=== PATIENT | male | born 1935 | race Caucasian/White ===

== ENCOUNTER 2018-03-08 14:34 | Emergency (ER) | payer OTHER ==
[~2018-03-08] VITALS: Ht 188 cm; Wt 95.9 kg
[2018-03-08 14:45] VITALS: BP 172/74; PULSE 59; RESP 16; TEMP 98.2; O2SAT 94
--- NOTE | 2018-03-08 15:18 | PD ---
HPI Chief Complaint: Edema Time Seen by Provider: 15:01 Travel History International Travel<30 days: No Contact w/Intl Traveler<30days: No Traveled to known affect area: No History of Present Illness HPI This patient was sent in to make sure he did not have a right leg DVT. He has had right leg swelling from knee to foot for the last week. No injury. He has some minor discomfort but no major pains there. No fever. 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 Symptom severity is mild to moderate. No alleviating factors. He is breathing fine. No exacerbating factors. PFSH Past Medical History Cardiovascular Problems: Yes (htn on med, [place] x 2, AAA with mesh) Cerebrovascular Accident: Yes (tia) Respiratory: Yes (copd) Social History Alcohol Use: No Tobacco Use: No Substance Use: No Allergies-Medications (Allergen,Severity, Reaction): Coded Allergies: No Known Allergies (Unverified , 03/08/18) Reported Meds & Prescriptions Reported Meds & Active Scripts Active Reported Klor-Con 10 (Potassium Chloride) 10 Meq Tab 10 Meq PO DAILY Furosemide 20 Mg Tab 20 Mg PO DAILY Alprazolam 0.25 Mg Tab 0.25 Mg PO BID PRN Zantac (Ranitidine HCl) 150 Mg Tab 150 Mg PO BID Isosorbide Mononitrate 10 Mg Tab 10 Mg PO DAILY Take 2 doses 7 hours apart. Simvastatin 40 Mg Tab 40 Mg PO HS Metoprolol Tartrate 25 Mg Tab 25 Mg PO BID Primidone 50 Mg Tab 50 Mg PO DAILY Benztropine (Benztropine Mesylate) 0.5 Mg Tab 0.5 Mg PO HS Review of Systems General / Constitutional: No: Fever Eyes: No: Visual changes HENT: No: Headaches Cardiovascular: Positive: Edema, No: Chest Pain or Discomfort Respiratory: No: Shortness of Breath Gastrointestinal: No: Abdominal Pain Genitourinary: No: Dysuria Musculoskeletal: Positive: Edema, Pain Skin: No Rash Neurologic: No: Weakness Psychiatric: No: Depression Endocrine: No: Polydipsia Hematologic/Lymphatic: No: Easy Bruising Physical Exam Narrative GENERAL: Pleasant elderly well-developed patient in no apparent distress. SKIN: Focused skin assessment reveals no rash and nodules. Skin is Warm and dry. HEAD: Atraumatic. Normocephalic. EYES: Pupils equal and round. No scleral icterus. No injection or drainage. Poor vision ENT: No nasal bleeding or discharge. Mucous membranes pink and moist. NECK: Trachea midline. No JVD. CARDIOVASCULAR: Regular rate and rhythm. No murmur appreciated. RESPIRATORY: No accessory muscle use. Clear to auscultation. Breath sounds equal bilaterally. GASTROINTESTINAL: Abdomen soft, non-tender, nondistended. Hepatic and splenic margins not palpable. MUSCULOSKELETAL: No obvious deformities. No clubbing. No cyanosis. Right leg has some swelling to the lower leg ankle and foot. No specific tenderness. It is not red and warm. NEUROLOGICAL: Awake and alert. No obvious cranial nerve deficits. Motor grossly within normal limits. Normal speech. PSYCHIATRIC: Appropriate mood and affect; insight and judgment normal. Data Data Last Documented VS Vital Signs Date Time Temp Pulse Resp B/P (MAP) Pulse Ox O2 Delivery O2 Flow Rate FiO2 03/08/18 15:08 Room Air 03/08/18 14:45 98.2 59 16 172/74 (106) 94 Orders Orders Iv Access Insert/Monitor (03/08/18 15:10) Complete Blood Count With Diff (03/08/18 15:10) Basic Metabolic Panel (Bmp) (03/08/18 15:10) Act Partial Throm Time (Ptt) (03/08/18 15:10) Prothrombin Time / Inr (Pt) (03/08/18 15:10) Us Leg Venous Doppler (03/08/18 ) Labs Laboratory Tests Test 03/08/18 15:35 White Blood Count 5.9 TH/MM3 Red Blood Count 5.09 MIL/MM3 Hemoglobin 15.2 GM/DL Hematocrit 46.6 % Mean Corpuscular Volume 91.6 FL Mean Corpuscular Hemoglobin 29.9 PG Mean Corpuscular Hemoglobin Concent 32.6 % Red Cell Distribution Width 14.4 % Platelet Count 216 TH/MM3 Mean Platelet Volume 7.0 FL Neutrophils (%) (Auto) 67.7 % Lymphocytes (%) (Auto) 19.1 % Monocytes (%) (Auto) 8.9 % Eosinophils (%) (Auto) 3.4 % Basophils (%) (Auto) 0.9 % Neutrophils # (Auto) 3.9 TH/MM3 Lymphocytes # (Auto) 1.1 TH/MM3 Monocytes # (Auto) 0.5 TH/MM3 Eosinophils # (Auto) 0.2 TH/MM3 Basophils # (Auto) 0.1 TH/MM3 CBC Comment DIFF FINAL Differential Comment Prothrombin Time 10.8 SEC Prothromb Time International Ratio 1.1 RATIO Activated Partial Thromboplast Time 25.0 SEC Blood Urea Nitrogen 21 MG/DL Creatinine 1.30 MG/DL Random Glucose 93 MG/DL Calcium Level 8.6 MG/DL Sodium Level 141 MEQ/L Potassium Level 4.0 MEQ/L Chloride Level 107 MEQ/L Carbon Dioxide Level 30.8 MEQ/L Anion Gap 3 MEQ/L Estimat Glomerular Filtration Rate 53 ML/MIN MDM Medical Decision Making Medical Screen Exam Complete: Yes Emergency Medical Condition: Yes Medical Record Reviewed: Yes Differential Diagnosis DVT, muscle injury, cellulitis Narrative Course I have reviewed the patient's electronic medical record. IV placed and labs sent Ultrasound of the right leg is negative for DVT Lab studies are normal Stable for outpatient follow-up. Should ice and elevate and follow-up with family physician Diagnosis Primary Impression: Pain and swelling of right lower leg Additional Impression: History of DVT in adulthood Additional Instructions: Follow-up with primary care physician Elevate right leg Med/Other Pt SpecificInfo: Other Disposition: 01 DISCHARGE HOME Condition: Stable Oneil Rivera MD Mar 08, 2018 15:18
[2018-03-08] MEDS ORDERED: METO25TA3 PO (15:20)
[2018-03-08] MEDS ORDERED: KLOR10TA PO (15:20)
[2018-03-08] MEDS ORDERED: FURO20TA PO (15:20)
[2018-03-08] MEDS ORDERED: BENZ0.5T PO (15:20)
[2018-03-08] MEDS ORDERED: SIMV40TA PO (15:20)
[2018-03-08] MEDS ORDERED: PRIM50TA5 PO (15:20)
[2018-03-08] MEDS ORDERED: ZANT150T2 PO (15:20)
[2018-03-08] MEDS ORDERED: ISOS10TA3 PO (15:20)
[2018-03-08] MEDS ORDERED: ALPR0.25 PO (15:20)
--- NOTE | 2018-03-08 15:40 | RADRPT ---
EXAM DATE/TIME: 03/08/2018 15:21 [facility] COMPARISON: No previous studies available for comparison. INDICATIONS : Right leg swelling. MEDICAL HISTORY : Hypertension. Myocardial infarction. Aneurysm, abdominal. TIA. SURGICAL HISTORY : AAA repair. ENCOUNTER: Initial ACUITY: 1 week PAIN SCORE: 4/10 LOCATION: Right leg. TECHNIQUE: Venous ultrasound of the leg was performed from the inguinal ligament to the proximal calf. Real-shari e, color Doppler and spectral tracing, compression and augmentation techniques were used. FINDINGS: There is normal compressibility of the deep venous system from the inguinal region to the proximal ca lf. No echogenic clot is seen in the lumen of the common femoral, femoral, popliteal, and posterior tibial veins. There is a normal response of the venous system to proximal and distal augmentation an d respiration. CONCLUSION: No DVT right leg. Cortez Dan MD on March 08, 2018 at 15:38 Board Certified Radiologist. This report was verified electronically.
[2018-03-08 15:41] LABS: AUTOMATED NEUTROPHIL # 3.9 TH/MM3 (1.8-7.7); BASOPHIL # 0.1 TH/MM3 (0-0.2); BASOPHIL % 0.9 % (0.0-2.0); EOSINOPHIL # 0.2 TH/MM3 (0-0.4); EOSINOPHIL % 3.4 % (0.0-4.0); HEMATOCRIT 46.6 % (39.0-51.0); HEMOGLOBIN 15.2 GM/DL (13.0-17.0); LYMPH % 19.1 % (9.0-44.0); LYMPHOCYTE # 1.1 TH/MM3 (1.0-4.8); MEAN CELL VOLUME 91.6 FL (80.0-100.0); MEAN CORPUSCULAR HEMOGLOBIN 29.9 PG (27.0-34.0); MEAN CORPUSCULAR HGB CONC 32.6 % (32.0-36.0); MONO % 8.9 % (0.0-8.0); MONOCYTE # 0.5 TH/MM3 (0-0.9); NEUT % 67.7 % (16.0-70.0); PLATELET COUNT 216 TH/MM3 (150-450); RED BLOOD COUNT 5.09 MIL/MM3 (4.50-5.90); RED CELL DISTRIBUTION WIDTH 14.4 % (11.6-17.2); WHITE BLOOD COUNT 5.9 TH/MM3 (4.0-11.0)
[2018-03-08 15:51] LABS: CALCIUM 8.6 MG/DL (8.5-10.1)
[2018-03-08 15:52] LABS: BICARBONATE 30.8 MEQ/L (21.0-32.0)
[2018-03-08 15:53] LABS: INTERNATIONAL NORMALIZED RATIO 1.1 RATIO; PROTHROMBIN TIME - PATIENT 10.8 SEC (9.8-11.6)
[2018-03-08 15:55] LABS: CREATININE 1.3 MG/DL (0.60-1.30)
== END 2018-03-08 16:19 | disposition home or self-care (01) ==
LOC: PHED 14:34
DX: R22.41 Localized swelling, mass and lump, right lower limb (principal); M79.661 Pain in right lower leg; Z86.718 Personal history of other venous thrombosis and embolism; I10 Essential (primary) hypertension; I25.2 Old myocardial infarction; Z86.73 Personal history of transient ischemic attack (TIA), and cerebral infarction without residual deficits; Z87.09 Personal history of other diseases of the respiratory system
CPT/HCPCS: 80048; 85025; 85610; 85730; 93971; 99284